=== PATIENT | female | born 1945 | race Caucasian/White ===

== ENCOUNTER 2021-07-12 09:33 | Emergency (ER) | payer MEDICARE, OTHER ==
[2021-07-12] MEDS ORDERED: Morphine 2 MG/ML SYRINGE IVPUSH ONE ×2 (09:56→14:35)
[2021-07-12] MEDS ORDERED: Ondansetron 4 MG/2 ML SDV IVPUSH ONE ×2 (09:57→14:35)
== END 2021-07-12 15:16 | disposition short-term general hospital (02) ==
LOC: VM.ED 09:33
DX: S72.052A Unspecified fracture of head of left femur, initial encounter for closed fracture (principal); W01.0XXA Fall on same level from slipping, tripping and stumbling without subsequent striking against object, initial encounter
CPT/HCPCS: 72192; 73562-LT; 96374; 96375; 96376; 99284; 99285-25; J2270; J2405

== ENCOUNTER 2021-07-19 06:48 | Inpatient (IN) | payer MEDICARE, OTHER ==
[2021-07-19] MEDS ORDERED: Melatonin 3 MG Tab PO PRN (13:34)
[2021-07-19] MEDS: Celecoxib 100 MG Cap PO SCH (18:07)
[2021-07-19] MEDS: Aspirin 81 MG Tab.EC PO SCH (18:08)
[2021-07-19] MEDS: Donepezil 10 MG Tab PO SCH (19:48)
[2021-07-20] MEDS: Aspirin 81 MG Tab.EC PO SCH ×2 (07:46→18:55)
[2021-07-20] MEDS: Celecoxib 100 MG Cap PO SCH ×2 (07:47→18:55)
[2021-07-20] MEDS: Ferrous Sulfate 325 MG Tab PO SCH (08:27)
[2021-07-20] MEDS: Donepezil 10 MG Tab PO SCH (19:54)
[2021-07-20] MEDS ORDERED: LORazepam 0.5 MG Tab PO ONE (23:27)
[2021-07-21] MEDS: Aspirin 81 MG Tab.EC PO SCH ×2 (10:28→17:43)
[2021-07-21] MEDS: Celecoxib 100 MG Cap PO SCH (10:28)
[2021-07-21] MEDS ORDERED: Celecoxib 100 MG Cap PO PRN (11:08)
[2021-07-21] MEDS ORDERED: ALPRAZolam 0.25 MG Tab PO PRN (16:44)
[2021-07-21] MEDS: Acetaminophen 325 MG Tab PO PRN (17:43)
[2021-07-21] MEDS: Melatonin 3 MG Tab PO SCH (19:30)
[2021-07-21] MEDS: Donepezil 10 MG Tab PO SCH (19:31)
[2021-07-22] MEDS: Ferrous Sulfate 325 MG Tab PO SCH (07:44)
[2021-07-22] MEDS: Aspirin 81 MG Tab.EC PO SCH ×2 (07:44→17:27)
[2021-07-22] MEDS: Melatonin 3 MG Tab PO SCH (19:46)
[2021-07-22] MEDS: Donepezil 10 MG Tab PO SCH (19:47)
[2021-07-23] MEDS: Aspirin 81 MG Tab.EC PO SCH ×2 (07:47→17:36)
[2021-07-23] MEDS: Acetaminophen 325 MG Tab PO PRN (17:35)
[2021-07-23] MEDS: Melatonin 3 MG Tab PO SCH (19:12)
[2021-07-23] MEDS: Donepezil 10 MG Tab PO SCH (19:13)
[2021-07-24] MEDS: Ferrous Sulfate 325 MG Tab PO SCH (07:55)
[2021-07-24] MEDS: Aspirin 81 MG Tab.EC PO SCH ×2 (07:55→17:45)
[2021-07-24] MEDS: Acetaminophen 325 MG Tab PO PRN (10:03)
[2021-07-24] MEDS: Melatonin 3 MG Tab PO SCH (20:11)
[2021-07-24] MEDS: Donepezil 10 MG Tab PO SCH (20:11)
[2021-07-25 07:00] LABS: CHLORIDE,CL 108 mmol/L (98-107); SODIUM,NA 142 mmol/L (136-145)
[2021-07-25 07:02] LABS: ANION GAP 9.6 mmol/L (5-15)
[2021-07-25] MEDS: Aspirin 81 MG Tab.EC PO SCH ×2 (07:42→18:15)
[2021-07-25] MEDS: Polyethylene Glycol 3350 Powder 17 GM Packet PO PRN (09:31)
[2021-07-25] MEDS: Melatonin 3 MG Tab PO SCH (19:35)
[2021-07-25] MEDS: Donepezil 10 MG Tab PO SCH (19:35)
[2021-07-26] MEDS: Aspirin 81 MG Tab.EC PO SCH ×2 (07:34→17:32)
[2021-07-26] MEDS: Ferrous Sulfate 325 MG Tab PO SCH (07:34)
[2021-07-26] MEDS: Acetaminophen 325 MG Tab PO PRN ×2 (15:21→21:34)
[2021-07-26] MEDS: Melatonin 3 MG Tab PO SCH (19:28)
[2021-07-26] MEDS: Donepezil 10 MG Tab PO SCH (19:28)
[2021-07-27] MEDS: Aspirin 81 MG Tab.EC PO SCH ×2 (07:42→17:45)
[2021-07-27] MEDS: Polyethylene Glycol 3350 Powder 17 GM Packet PO PRN (07:43)
[2021-07-27] MEDS ORDERED: Lactulose Soln 10 GM/15 ML 30 ML UD Cup PO ONE (08:16)
[2021-07-27] MEDS: Melatonin 3 MG Tab PO SCH (20:47)
[2021-07-27] MEDS: Donepezil 10 MG Tab PO SCH (20:47)
[2021-07-28] MEDS: Aspirin 81 MG Tab.EC PO SCH ×2 (07:30→17:28)
[2021-07-28] MEDS: Donepezil 10 MG Tab PO SCH (19:32)
[2021-07-28] MEDS: Melatonin 3 MG Tab PO SCH (19:32)
[2021-07-28] MEDS: Acetaminophen 325 MG Tab PO PRN (19:32)
[2021-07-29] MEDS: Aspirin 81 MG Tab.EC PO SCH (09:41)
[2021-07-29] MEDS: Aspirin 81 MG Tab.Chew PO SCH ×2 (10:43→17:37)
[2021-07-29] MEDS: Acetaminophen 325 MG Tab PO PRN (19:35)
[2021-07-29] MEDS: Donepezil 10 MG Tab PO SCH (19:36)
[2021-07-29] MEDS: Melatonin 3 MG Tab PO SCH (19:36)
[2021-07-30] MEDS: Acetaminophen 325 MG Tab PO PRN (05:14)
[2021-07-30] MEDS: Aspirin 81 MG Tab.Chew PO SCH ×2 (07:32→18:00)
[2021-07-30] MEDS: Donepezil 10 MG Tab PO SCH (19:28)
[2021-07-30] MEDS: Melatonin 3 MG Tab PO SCH (19:28)
[2021-07-31] MEDS: Acetaminophen 325 MG Tab PO PRN ×2 (07:40→16:38)
[2021-07-31] MEDS: Aspirin 81 MG Tab.Chew PO SCH ×2 (07:40→17:39)
[2021-07-31] MEDS: Donepezil 10 MG Tab PO SCH (20:09)
[2021-07-31] MEDS: Melatonin 3 MG Tab PO SCH (20:09)
[2021-07-31] MEDS: QUEtiapine 25 MG Tab PO PRN (20:09)
[2021-08-01] MEDS: Acetaminophen 325 MG Tab PO PRN ×3 (02:56→21:49)
[2021-08-01] MEDS: Aspirin 81 MG Tab.Chew PO SCH ×2 (08:20→17:34)
[2021-08-01] MEDS: QUEtiapine 25 MG Tab PO PRN (21:48)
[2021-08-01] MEDS: Donepezil 10 MG Tab PO SCH (21:48)
[2021-08-01] MEDS: Melatonin 3 MG Tab PO SCH (21:49)
[2021-08-02] MEDS: Aspirin 81 MG Tab.Chew PO SCH ×2 (07:39→17:38)
[2021-08-02] MEDS: Acetaminophen 325 MG Tab PO PRN (21:36)
[2021-08-02] MEDS: Melatonin 3 MG Tab PO SCH (21:36)
[2021-08-02] MEDS: QUEtiapine 25 MG Tab PO PRN (21:36)
[2021-08-02] MEDS: Donepezil 10 MG Tab PO SCH (21:37)
[2021-08-03] MEDS: Aspirin 81 MG Tab.Chew PO SCH ×2 (07:42→17:39)
[2021-08-03] MEDS: DULoxetine 20 MG Cap PO SCH (09:55)
[2021-08-03] MEDS: QUEtiapine 25 MG Tab PO PRN (21:07)
[2021-08-03] MEDS: Melatonin 3 MG Tab PO SCH (21:07)
[2021-08-03] MEDS: Donepezil 10 MG Tab PO SCH (21:07)
[2021-08-03] MEDS: Acetaminophen 325 MG Tab PO PRN (21:08)
[2021-08-04] MEDS: Aspirin 81 MG Tab.Chew PO SCH ×2 (09:27→18:19)
[2021-08-04] MEDS: DULoxetine 20 MG Cap PO SCH (09:28)
[2021-08-04] MEDS: Acetaminophen 325 MG Tab PO PRN (09:29)
[2021-08-04] MEDS: QUEtiapine 25 MG Tab PO PRN (19:36)
[2021-08-04] MEDS: Donepezil 10 MG Tab PO SCH (19:38)
[2021-08-04] MEDS: Melatonin 3 MG Tab PO SCH (19:38)
[2021-08-05] MEDS: Aspirin 81 MG Tab.Chew PO SCH ×2 (09:16→19:42)
[2021-08-05] MEDS: DULoxetine 20 MG Cap PO SCH (09:17)
[2021-08-05] MEDS: Acetaminophen 325 MG Tab PO PRN ×2 (09:18→20:25)
[2021-08-05] MEDS: Melatonin 3 MG Tab PO SCH (20:23)
[2021-08-05] MEDS: QUEtiapine 25 MG Tab PO PRN (20:23)
[2021-08-05] MEDS: Donepezil 10 MG Tab PO SCH (20:25)
[2021-08-06] MEDS: DULoxetine 20 MG Cap PO SCH (08:20)
[2021-08-06] MEDS: Aspirin 81 MG Tab.Chew PO SCH ×2 (08:20→17:14)
[2021-08-06] MEDS: Donepezil 10 MG Tab PO SCH (19:44)
[2021-08-06] MEDS: QUEtiapine 25 MG Tab PO PRN (19:45)
[2021-08-06] MEDS: Melatonin 3 MG Tab PO SCH (19:46)
[2021-08-07] MEDS: Aspirin 81 MG Tab.Chew PO SCH ×2 (07:47→17:17)
[2021-08-07] MEDS: DULoxetine 20 MG Cap PO SCH (07:47)
[2021-08-07] MEDS: QUEtiapine 25 MG Tab PO PRN (19:10)
[2021-08-07] MEDS: Melatonin 3 MG Tab PO SCH (19:11)
[2021-08-07] MEDS: Donepezil 10 MG Tab PO SCH (19:12)
[2021-08-08] MEDS: DULoxetine 20 MG Cap PO SCH (07:08)
[2021-08-08] MEDS: Aspirin 81 MG Tab.Chew PO SCH ×2 (07:08→17:44)
[2021-08-08 07:29] LABS: CHLORIDE,CL 106 mmol/L (98-107); SODIUM,NA 142 mmol/L (136-145)
[2021-08-08 07:30] LABS: ANION GAP 9.7 mmol/L (5-15)
[2021-08-08] MEDS: QUEtiapine 25 MG Tab PO PRN (21:22)
[2021-08-08] MEDS: Acetaminophen 325 MG Tab PO PRN (21:22)
[2021-08-08] MEDS: Melatonin 3 MG Tab PO SCH (21:22)
[2021-08-08] MEDS: Donepezil 10 MG Tab PO SCH (21:22)
[2021-08-09] MEDS: DULoxetine 20 MG Cap PO SCH (07:19)
[2021-08-09] MEDS: Aspirin 81 MG Tab.Chew PO SCH ×2 (07:19→17:18)
[2021-08-09] MEDS: Acetaminophen 325 MG Tab PO PRN (21:19)
[2021-08-09] MEDS: QUEtiapine 25 MG Tab PO PRN (21:19)
[2021-08-09] MEDS: Donepezil 10 MG Tab PO SCH (21:20)
[2021-08-09] MEDS: Melatonin 3 MG Tab PO SCH (21:20)
[2021-08-10] MEDS: DULoxetine 20 MG Cap PO SCH (08:42)
[2021-08-10] MEDS: Aspirin 81 MG Tab.Chew PO SCH (08:42)
== END 2021-08-10 14:00 | disposition home health service (06) | DRG 561 ==
LOC: VM.MS 12:32
PROVIDERS: ADMIT Internal Medicine; ATTEND Internal Medicine
DX: S72.002D Fracture of unspecified part of neck of left femur, subsequent encounter for closed fracture with routine healing (principal); F03.90 Unspecified dementia, unspecified severity, without behavioral disturbance, psychotic disturbance, mood disturbance, and anxiety; M17.0 Bilateral primary osteoarthritis of knee; Z96.652 Presence of left artificial knee joint; Z96.642 Presence of left artificial hip joint; E66.9 Obesity, unspecified; F43.21 Adjustment disorder with depressed mood; S09.90XD Unspecified injury of head, subsequent encounter; Z68.29 Body mass index [BMI] 29.0-29.9, adult
CPT/HCPCS: 36415; 70450; 80048; 82947; 85025; 97110-GP; 97116-GP; 97129-GO; 97161-GP; 97165-GO; 97535-GO; A9270-GY

== ENCOUNTER 2021-10-04 11:12 | Emergency (ER) | payer MEDICARE, OTHER ==
[2021-10-04 11:59] LABS: CHLORIDE,CL 110 mmol/L (98-107); SODIUM,NA 146 mmol/L (136-145)
[2021-10-04 12:01] LABS: PTT,PARTIAL THROMBOPLSTIN TIME 24.5 SEC (20.5-30.9)
[2021-10-04 12:08] LABS: ANION GAP 13.6 mmol/L (5-15)
[2021-10-04] MEDS: Piperacillin/Tazobactam 3.375 GM in Sodium Chloride 0.9% 100 ML IV ONE (12:12)
[2021-10-04] MEDS: Sodium Chloride 0.9% 10 ML Syringe FLUSH PRN (12:12)
[2021-10-04] MEDS: VANCOmycin 1.5 GM/300 ML 1.5 GM in Premix Bag 1 BAG IV ONE (12:53)
[2021-10-04 13:52] LABS: CORONAVIRUS COVID-19 NAA NEGATIVE (NEGATIVE); RESPIRATORY SYNCYTIAL VIR NAA NEGATIVE (NEGATIVE)
[2021-10-04] MEDS: Sodium Chloride 0.9% 1,000 ML IV SCH (17:02)
== END 2021-10-04 17:25 | disposition short-term general hospital (02) ==
LOC: VM.ED 11:12
DX: I21.4 Non-ST elevation (NSTEMI) myocardial infarction (principal); N39.0 Urinary tract infection, site not specified; J18.9 Pneumonia, unspecified organism; I10 Essential (primary) hypertension; Z79.82 Long term (current) use of aspirin; Z79.899 Other long term (current) drug therapy
CPT/HCPCS: 0241U; 36415; 70450; 71045; 80053; 81001; 83605; 83735; 84100; 84145; 84484; 85025; 85610; 85730; 86140; 87040; 87086; 87088; 87186; 93005; 93010; 96365; 96366; 96367; 99284; 99285-25; J2543; J3370; J3490; J7030

== ENCOUNTER 2022-04-24 11:16 | Inpatient (IN) | payer MEDICARE, OTHER ==
[2022-04-24] MEDS ORDERED: Acetaminophen 325 MG Tab PO PRN (13:13)
[2022-04-24] MEDS ORDERED: Hypromellose 0.3% Ophth Soln 15 ML Bottle EYERT PRN (13:14)
[2022-04-24] MEDS ORDERED: Sodium Chloride 0.9% 1,000 ML IV ONE (13:15)
[2022-04-24] MEDS ORDERED: Ondansetron 4 MG Tab.DIS PO PRN (13:19)
[2022-04-24 13:31] LABS: ANION GAP 14.4 mmol/L (5-15)
[2022-04-24] MEDS: cefTRIAXone 1 GM Vial IVPUSH SCH (13:50)
[2022-04-24] MEDS: Sodium Chloride 0.9% 1,000 ML IV SCH ×2 (15:14→21:21)
[2022-04-24] MEDS ORDERED: 50% Dextrose in Water 50 ML Syringe IV STA (23:53)
[2022-04-25] MEDS: Sodium Chloride 0.9% 1,000 ML IV SCH (04:08)
[2022-04-25] MEDS ORDERED: 50% Dextrose in Water 50 ML Syringe IV STA (06:30)
[2022-04-25] MEDS: Dextrose 5%-0.45% NaCl 1,000 ML IV SCH ×2 (08:39→17:25)
[2022-04-25] MEDS ORDERED: Iopamidol 612 MG/ML 100 ML Bottle IVPUSH ONE (10:34)
[2022-04-25] MEDS: Aspirin 81 MG Tab.EC PO SCH (12:14)
[2022-04-25] MEDS: cefTRIAXone 1 GM Vial IVPUSH SCH (12:59)
[2022-04-25] MEDS: Sodium Chloride 0.9% 10 ML Syringe IV PRN (21:11)
[2022-04-26] MEDS: Dextrose 5%-0.45% NaCl 1,000 ML IV SCH ×3 (01:26→18:06)
[2022-04-26 09:35] LABS: ANION GAP 10.6 mmol/L (5-15)
[2022-04-26] MEDS: Aspirin 81 MG Tab.EC PO SCH (09:48)
[2022-04-26] MEDS: cefTRIAXone 1 GM Vial IVPUSH SCH (13:01)
[2022-04-27] MEDS: Dextrose 5%-0.45% NaCl 1,000 ML IV SCH ×2 (02:08→10:30)
[2022-04-27 08:04] LABS: ANION GAP 10.3 mmol/L (5-15)
[2022-04-27] MEDS ORDERED: Potassium Chloride 10 MEQ Tab.ER PO ONE (08:44)
[2022-04-27] MEDS: Aspirin 81 MG Tab.EC PO SCH (09:20)
[2022-04-27] MEDS: Sodium Chloride 0.9% 10 ML Syringe IV PRN (09:20)
[2022-04-27] MEDS: cefTRIAXone 1 GM Vial IVPUSH SCH (13:31)
== END 2022-04-27 14:15 | disposition swing bed (61) | DRG 884 ==
LOC: VM.MS 11:23
PROVIDERS: ADMIT Nurse Practitioner Family; ATTEND Family Medicine
DX: F03.90 Unspecified dementia, unspecified severity, without behavioral disturbance, psychotic disturbance, mood disturbance, and anxiety (principal); G93.49 Other encephalopathy; A85.8 Other specified viral encephalitis; E86.0 Dehydration; Z20.822 Contact with and (suspected) exposure to COVID-19; E04.1 Nontoxic single thyroid nodule; E16.2 Hypoglycemia, unspecified; Z79.82 Long term (current) use of aspirin
CPT/HCPCS: 36415; 70450; 71045; 71260; 74177; 80048; 80053; 81001; 82010; 82140; 82803; 82947; 83525; 83605; 83735; 84145; 84443; 84681; 85025; 85027; 86140; 87040; A9270-GY; J0696; J3490; J7030; J7042; Q9967; U0002

== ENCOUNTER 2022-04-27 10:33 | Inpatient (IN) | payer MEDICARE, OTHER ==
[2022-04-27] MEDS ORDERED: Hypromellose 0.3% Ophth Soln 15 ML Bottle EYERT PRN (17:24)
[2022-04-27] MEDS ORDERED: Acetaminophen 325 MG Tab PO PRN (17:24)
[2022-04-27] MEDS ORDERED: Ondansetron 4 MG Tab.DIS PO PRN (17:25)
[2022-04-27] MEDS: Dextrose 5%-0.45% NaCl 1,000 ML IV SCH (18:59)
[2022-04-28 06:54] LABS: ANION GAP 10.4 mmol/L (5-15)
[2022-04-28] MEDS: Dextrose 5%-0.45% NaCl 1,000 ML IV SCH ×2 (07:49→17:54)
[2022-04-28] MEDS: Potassium Chloride 10 MEQ Tab.ER PO SCH (10:14)
[2022-04-28] MEDS: Aspirin 81 MG Tab.EC PO SCH (10:14)
[2022-04-28] MEDS: Enoxaparin 40 MG/0.4 ML Syringe SUBCUT SCH (12:33)
[2022-04-29] MEDS: Dextrose 5%-0.45% NaCl 1,000 ML IV SCH ×2 (04:41→14:45)
[2022-04-29] MEDS: Aspirin 81 MG Tab.EC PO SCH (08:50)
[2022-04-29] MEDS: Potassium Chloride 10 MEQ Tab.ER PO SCH (08:50)
[2022-04-29] MEDS: Enoxaparin 40 MG/0.4 ML Syringe SUBCUT SCH (12:27)
[2022-04-30] MEDS: Dextrose 5%-0.45% NaCl 1,000 ML IV SCH ×3 (00:45→20:29)
[2022-04-30] MEDS: Enoxaparin 40 MG/0.4 ML Syringe SUBCUT SCH (12:06)
[2022-04-30] MEDS: Aspirin 81 MG Tab.EC PO SCH (12:09)
[2022-04-30] MEDS: Potassium Chloride 10 MEQ Tab.ER PO SCH (12:09)
[2022-05-01] MEDS: Dextrose 5%-0.45% NaCl 1,000 ML IV SCH (06:30)
[2022-05-01] MEDS: Aspirin 81 MG Tab.EC PO SCH (09:27)
[2022-05-01] MEDS: Potassium Chloride 10 MEQ Tab.ER PO SCH (09:27)
[2022-05-01] MEDS ORDERED: Dextrose 5%-0.45% NaCl 1,000 ML IV SCH (11:33)
[2022-05-01] MEDS: Enoxaparin 40 MG/0.4 ML Syringe SUBCUT SCH (12:58)
[2022-05-01] MEDS: Sodium Chloride 0.45% 1,000 ML IV SCH (22:51)
[2022-05-02 07:07] LABS: ANION GAP 10.3 mmol/L (5-15)
[2022-05-02] MEDS: Potassium Chloride 10 MEQ Tab.ER PO SCH (09:29)
[2022-05-02] MEDS: Aspirin 81 MG Tab.EC PO SCH (09:29)
[2022-05-02] MEDS: Enoxaparin 40 MG/0.4 ML Syringe SUBCUT SCH (13:44)
[2022-05-02] MEDS: Sodium Chloride 0.45% 1,000 ML IV SCH (18:10)
[2022-05-03] MEDS: Potassium Chloride 10 MEQ Tab.ER PO SCH (09:46)
[2022-05-03] MEDS: Aspirin 81 MG Tab.EC PO SCH (09:46)
[2022-05-03] MEDS: Enoxaparin 40 MG/0.4 ML Syringe SUBCUT SCH (12:35)
[2022-05-03] MEDS: Sodium Chloride 0.45% 1,000 ML IV SCH (12:40)
[2022-05-04 07:17] LABS: ANION GAP 11.5 mmol/L (5-15)
[2022-05-04] MEDS: Sodium Chloride 0.45% 1,000 ML IV SCH (08:09)
[2022-05-04] MEDS: Aspirin 81 MG Tab.EC PO SCH (08:09)
[2022-05-04] MEDS: Potassium Chloride 10 MEQ Tab.ER PO SCH (08:10)
[2022-05-04] MEDS: Enoxaparin 40 MG/0.4 ML Syringe SUBCUT SCH (12:26)
[2022-05-05] MEDS: Sodium Chloride 0.45% 1,000 ML IV SCH ×2 (02:32→22:31)
[2022-05-05] MEDS: Potassium Chloride 10 MEQ Tab.ER PO SCH (09:15)
[2022-05-05] MEDS: Aspirin 81 MG Tab.EC PO SCH (09:15)
[2022-05-05] MEDS: Enoxaparin 40 MG/0.4 ML Syringe SUBCUT SCH (11:06)
[2022-05-06] MEDS: Potassium Chloride 10 MEQ Tab.ER PO SCH (08:01)
[2022-05-06] MEDS: Aspirin 81 MG Tab.EC PO SCH (08:01)
[2022-05-06] MEDS: Enoxaparin 40 MG/0.4 ML Syringe SUBCUT SCH (11:32)
[2022-05-06] MEDS: Sodium Chloride 0.45% 1,000 ML IV SCH (17:23)
[2022-05-07] MEDS: Potassium Chloride 10 MEQ Tab.ER PO SCH (09:21)
[2022-05-07] MEDS: Aspirin 81 MG Tab.EC PO SCH (09:21)
[2022-05-07] MEDS: Enoxaparin 40 MG/0.4 ML Syringe SUBCUT SCH (11:13)
[2022-05-07] MEDS: Sodium Chloride 0.45% 1,000 ML IV SCH (13:23)
[2022-05-08] MEDS: Potassium Chloride 10 MEQ Tab.ER PO SCH (09:16)
[2022-05-08] MEDS: Aspirin 81 MG Tab.EC PO SCH (09:16)
[2022-05-08] MEDS: Sodium Chloride 0.45% 1,000 ML IV SCH (09:21)
[2022-05-08] MEDS: Enoxaparin 40 MG/0.4 ML Syringe SUBCUT SCH (11:49)
[2022-05-09] MEDS: Sodium Chloride 0.45% 1,000 ML IV SCH (05:44)
[2022-05-09] MEDS: Aspirin 81 MG Tab.EC PO SCH (08:00)
[2022-05-09] MEDS: Potassium Chloride 10 MEQ Tab.ER PO SCH (08:01)
[2022-05-09] MEDS: Enoxaparin 40 MG/0.4 ML Syringe SUBCUT SCH (11:44)
[2022-05-10] MEDS: Sodium Chloride 0.45% 1,000 ML IV SCH ×2 (00:43→18:18)
[2022-05-10] MEDS: Aspirin 81 MG Tab.EC PO SCH (08:51)
[2022-05-10] MEDS: Potassium Chloride 10 MEQ Tab.ER PO SCH (08:51)
[2022-05-10] MEDS: Enoxaparin 40 MG/0.4 ML Syringe SUBCUT SCH (12:48)
[2022-05-11] MEDS: Aspirin 81 MG Tab.EC PO SCH (09:25)
[2022-05-11] MEDS: Potassium Chloride 10 MEQ Tab.ER PO SCH (09:25)
== END 2022-05-11 12:00 | disposition hospice, home (50) | DRG 948 ==
LOC: VM.MS 14:25
PROVIDERS: ADMIT Family Medicine; ATTEND Family Medicine
DX: R41.0 Disorientation, unspecified (principal); G93.49 Other encephalopathy; A85.8 Other specified viral encephalitis; R53.1 Weakness; E86.0 Dehydration; Z66 Do not resuscitate; Z51.5 Encounter for palliative care; H54.7 Unspecified visual loss; I10 Essential (primary) hypertension; M81.0 Age-related osteoporosis without current pathological fracture; F03.C0 Unspecified dementia, severe, without behavioral disturbance, psychotic disturbance, mood disturbance, and anxiety; E16.2 Hypoglycemia, unspecified; G30.9 Alzheimer's disease, unspecified; M17.12 Unilateral primary osteoarthritis, left knee; Z96.642 Presence of left artificial hip joint; Z96.652 Presence of left artificial knee joint; Z98.42 Cataract extraction status, left eye; Z98.41 Cataract extraction status, right eye
CPT/HCPCS: 36415; 80048; 80053; 82140; 82607; 82947; 92610-GN; 95851-GO; 97110-GP; 97161-GP; 97165-GO; 97530-GP; 97535-GO; A9270-GY; J1650; J7042